=== PATIENT | male | born 1980 | race Caucasian/White ===

== ENCOUNTER 2020-02-05 19:11 | Emergency (ER) | payer MEDICAID ==
[~2020-02-05] VITALS: Ht 170.2 cm; Wt 63.5 kg
--- NOTE | 2020-02-05 19:51 | NUR ---
Dr Nguyen into eval patient.
[2020-02-05] MEDS ORDERED: ONDANSETRON 4 MG/2 ML VIAL ONE (19:53)
--- NOTE | 2020-02-05 20:23 | NUR ---
Patient discharged to home in stable condition. Written and verbal after care instructions given. Patient verbalizes understanding of instructions. Stressed follow up or return to ER for worsening s/s. Patient left with stable gait.
[2020-02-05 20:24] VITALS: BP 124/81
== END 2020-02-05 20:26 | disposition home or self-care (01) ==
LOC: ER 19:19
DX: B02.9 Zoster without complications (principal)
CPT/HCPCS: A4663; J2405

== ENCOUNTER 2020-09-26 20:50 | Emergency (ER) | payer BC, MEDICAID ==
[~2020-09-26] VITALS: Ht 172.7 cm; Wt 65.8 kg
[2020-09-26] MEDS ORDERED: PRED50TA PO (21:27)
[2020-09-26] MEDS ORDERED: DIPH25CA83 PO (21:28)
--- NOTE | 2020-09-26 21:33 | NUR ---
Patient discharged to home in stable condition. Written and verbal after care instructions given. Patient verbalizes understanding of instructions. Stressed follow up or return to ER for worsening s/s. Patient out of ER with steady gait, no acute signs of distress, VSS, all belongings taken.
[2020-09-26 21:35] VITALS: BP 124/75
== END 2020-09-26 21:35 | disposition home or self-care (01) ==
LOC: ER 20:53
DX: L50.9 Urticaria, unspecified (principal)
CPT/HCPCS: A4663

== ENCOUNTER 2020-10-07 20:47 | Emergency (ER) | payer BC ==
[~2020-10-07] VITALS: Ht 170.2 cm; Wt 72.6 kg
[~2020-10-07 20:47] MED LIST: DIPH25CA83 PO; PRED50TA PO
--- NOTE | 2020-10-07 21:00 | NUR ---
39 y/o male presents for abcess under his right armpit. Was here 11 days ago and says nothing has improved. A&Ox4. [place] speaking. Accompanied by who speaks some [place]. No fever, no chills, no diaphoresis. No other issues present.
--- NOTE | 2020-10-07 21:32 | NUR ---
in Room for MSE
[2020-10-07] MEDS ORDERED: SULF1TAB48 PO (21:42)
[2020-10-07] MEDS ORDERED: HYDR-4275 PO (21:44)
[2020-10-07 21:52] VITALS: BP 124/75
--- NOTE | 2020-10-07 21:52 | NUR ---
Patient discharged to home in stable condition. Written and verbal after care instructions given. Patient verbalizes understanding of instructions. Stressed follow up or return to ER for worsening s/s. Belongings with patient. Steady gait.
== END 2020-10-07 21:53 | disposition home or self-care (01) ==
LOC: ER 20:48
DX: L02.411 Cutaneous abscess of right axilla (principal); F17.210 Nicotine dependence, cigarettes, uncomplicated; B95.8 Unspecified staphylococcus as the cause of diseases classified elsewhere; R21 Rash and other nonspecific skin eruption
CPT/HCPCS: 87070; 87077; A4663

== ENCOUNTER 2020-10-10 23:41 | Emergency (ER) | payer BC ==
[~2020-10-10] VITALS: Ht 170.2 cm; Wt 68.0 kg
[~2020-10-10 23:41] MED LIST changes: +HYDR-4275 PO; +SULF1TAB48 PO
--- NOTE | 2020-10-10 23:50 | NUR ---
Dr. Swartz at bedside for MSE.
[2020-10-10 23:56] VITALS: BP 132/76
== END 2020-10-11 00:43 | disposition home or self-care (01) ==
LOC: ER 23:42
DX: Z48.817 Encounter for surgical aftercare following surgery on the skin and subcutaneous tissue (principal); L02.419 Cutaneous abscess of limb, unspecified; F17.200 Nicotine dependence, unspecified, uncomplicated
CPT/HCPCS: A4663